=== PATIENT | female | born 1970 | race African-American/Black ===

== ENCOUNTER 2017-07-02 10:52 | Emergency (ER) | payer OTHER ==
[~2017-07-02] VITALS: Ht 162.6 cm; Wt 50.8 kg
[~2017-07-02 10:52] MED LIST: AMOXICILLIN500 MG ORAL; CEPHALEXIN500 MG ORAL; CYCLOBENZAPRINE10 MG ORAL; HYDROCORTISON28.4 G5 TOPIC; HYDROXYZINE HCL50 M1 PO; IBUPROFEN600 MG ORAL; NITROFURANTOIN100 M2 ORAL; NKM; PROMETHAZINE-D118 ML ORAL; ZOFRAN4 M3 ORAL
[2017-07-02 11:30] VITALS: BP 103/69
[2017-07-02] MEDS ORDERED: Dicyclomine HCl 10mg/5ml oral soln ORAL ONE (12:00)
[2017-07-02] MEDS ORDERED: Metoclopramide 10mg/2ml Inj IVP ONE (12:00)
[2017-07-02] MEDS ORDERED: Mylanta II UD 30ml ORAL ONE (12:00)
[2017-07-02 12:08] LABS: APPEARANCE,URINE CLOUDY; KETONES,URINE NEGATIVE (NEGATIVE); LEUKOCYTE ESTERASE ,URINE 3+ (NEGATIVE); NITRITE,URINE NEGATIVE (NEGATIVE); PH,URINE 5 (4.5-8.0); PROTEIN,URINE 2+ (NEGATIVE); UROBILINOGEN,URINE NORMAL MG/DL (0.0-1.0)
[2017-07-02 12:11] LABS: BASOPHILS % (AUTO) 1.3 % (0.0-2.0); EOSINOPHILS % (AUTO) 0.8 % (0.0-3.0); MEAN CORPUSCULAR HEMOGLOBIN 31.8 PG (27.0-31.0); MEAN CORPUSCULAR HGB CONC 31.7 G/DL (32.0-36.0); MEAN CORPUSCULAR VOLUME 100 FL (80-99); MONOCYTES % (AUTO) 8.1 % (1.0-10.0); NEUTROPHILS % (AUTO) 74.8 % (45.0-75.0); PLATELET COUNT 287 K/UL (150-450); RED BLOOD COUNT 4.18 M/UL (4.20-5.40); RED CELL DISTRIBUTION WIDTH 11.8 % (11.6-14.8); WHITE BLOOD COUNT 13.1 K/UL (4.8-10.8)
[2017-07-02 12:15] LABS: BACTERIA,URINE FEW /HPF; SQUAMOUS EPITHELIAL CELL,UR FEW /LPF (NONE/OCC); WBC,URINE 60-80 /HPF (0 - 2)
[2017-07-02] MEDS ORDERED: cefTRIAXone 1 GM in NS 55 ML IVPB ONE (12:30)
[2017-07-02 12:37] LABS: ALANINE AMINOTRANSFERASE 7 U/L (3-33); ALBUMIN/GLOBULIN RATIO 1.2 (1.0-2.7); ANION GAP 11 (5-15); ASPARTATE AMINO TRANSFERASE 25 U/L (5-40); CALCIUM 9.1 mg/dL (8.6-10.2); CARBON DIOXIDE 28 mEQ/L (20-30); CHLORIDE 100 mEQ/L (98-107); CREATININE 0.8 mg/dL (0.5-0.9); GLOMERULAR FILTRATION RATE > 60 mL/min (>60); HEMOLYSIS 4; LIPASE 13 U/L (< 60); POTASSIUM 4.2 mEQ/L (3.4-4.9); SODIUM 139 mEQ/L (135-145); TOTAL PROTEIN 7.3 g/dL (6.6-8.7)
[2017-07-02] MEDS ORDERED: ZOFRAN4 MG ORAL (12:54)
[2017-07-02] MEDS ORDERED: KEFLEX500 MG ORAL (12:54)
[2017-07-02] MEDS ORDERED: IBUPROFEN600 MG ORAL (12:54)
--- NOTE | 2017-07-02 12:59 | Emergency Room Report ---
History of Present Illness General Chief Complaint: Abdominal Pain Source: Patient Present Illness HPI Is a 47-year-old female who presented after increased lower bowel pain as well as vomiting. Patient had the symptoms over the past 2 days. She stated that pain was associated with some nausea. Patient any diarrhea. She denied fever. The patient having moderate pain. Patient prior history of urinary infections. Allergies: Coded Allergies: No Known Allergies (Unverified , 01/23/14) Patient History Last Menstrual Period: 06/10/17 Now: No : 2 Para: 2 Reviewed Nursing Documentation: PMH: Agreed, PSxH: Agreed Nursing Documentation-PMH Past Medical History: No Stated History Hx Asthma: Yes Review of Systems All Other Systems: negative except mentioned in HPI Physical Exam Vital Signs Date Time Temp Pulse Resp B/P Pulse Ox O2 Delivery O2 Flow Rate FiO2 07/02/17 11:05 97.9 84 16 103/69 100 Room Air Sp02 EP Interpretation: reviewed, normal General Appearance: normal inspection, well appearing, no apparent distress, alert, GCS 15 Head: atraumatic ENT: normal ENT inspection, hearing grossly normal, normal voice Neck: normal inspection, full range of motion, supple, no bony tend Respiratory: normal inspection, lungs clear, normal breath sounds, no respiratory distress, no retraction, no wheezing Cardiovascular #1: regular rate, rhythm, no edema Gastrointestinal: normal inspection, normal bowel sounds, non tender, soft, no guarding, no hernia Genitourinary: no CVA tenderness Musculoskeletal: normal inspection, back normal, normal range of motion Neurologic: normal inspection, alert, oriented x3, responsive, texturing machine fixer III-XII nml as tested, motor strength/tone normal, speech normal Psychiatric: normal inspection, judgement/insight normal, mood/affect normal Skin: normal inspection, normal color, no rash Medical Decision Making Diagnostic Impression: Primary Impression: Urinary tract infection ER Course Patient presented for abdominal pain. Differential diagnoses included ischemic bowel, appendicitis, perforated viscus, abdominal aortic aneurysm, inferior myocardial infarction, viral gastroenteritis Because of complexity of patient's case laboratory testing and imaging studies were ordered. Patient appears to have evidence of urinary tract infection. Laboratory testing was notable for mildly white blood count. The patient was given IV antibiotics. The patient was noted to have a mildly enlarged uterus consistent with uterine fibroidsThe patient is advised to follow up with primary care doctor in 1-2 days. Patient is advised to return if any worsening condition or if any changes in status that are concerning. Labs Test 07/02/17 11:50 White Blood Count 13.1 K/UL (4.8-10.8) Red Blood Count 4.18 M/UL (4.20-5.40) Hemoglobin 13.3 G/DL (12.0-16.0) Hematocrit 41.9 % (37.0-47.0) Mean Corpuscular Volume 100 FL (80-99) Mean Corpuscular Hemoglobin 31.8 PG (27.0-31.0) Mean Corpuscular Hemoglobin Concent 31.7 G/DL (32.0-36.0) Red Cell Distribution Width 11.8 % (11.6-14.8) Platelet Count 287 K/UL (150-450) Mean Platelet Volume 7.0 FL (6.5-10.1) Neutrophils (%) (Auto) 74.8 % (45.0-75.0) Lymphocytes (%) (Auto) 15.0 % (20.0-45.0) Monocytes (%) (Auto) 8.1 % (1.0-10.0) Eosinophils (%) (Auto) 0.8 % (0.0-3.0) Basophils (%) (Auto) 1.3 % (0.0-2.0) Urine Color Yellow Urine Appearance Cloudy Urine pH 5 (4.5-8.0) Urine Specific [place] 1.015 (1.005-1.035) Urine Protein 2+ (NEGATIVE) Urine Glucose (UA) Negative (NEGATIVE) Urine Ketones Negative (NEGATIVE) Urine Occult Blood 2+ (NEGATIVE) Urine Nitrite Negative (NEGATIVE) Urine Bilirubin Negative (NEGATIVE) Urine Urobilinogen Normal MG/DL (0.0-1.0) Urine Leukocyte Esterase 3+ (NEGATIVE) Urine RBC 2-4 /HPF (0 - 2) Urine WBC 60-80 /HPF (0 - 2) Urine Squamous Epithelial Cells Few /LPF (NONE/OCC) Urine Bacteria Few /HPF (NONE) Urine HCG, Qualitative Negative Sodium Level 139 mEQ/L (135-145) Potassium Level 4.2 mEQ/L (3.4-4.9) Chloride Level 100 mEQ/L (98-107) Carbon Dioxide Level 28 mEQ/L (20-30) Anion Gap 11 (5-15) Blood Urea Nitrogen 7 mg/dL (7-23) Creatinine 0.8 mg/dL (0.5-0.9) Estimat Glomerular Filtration Rate > 60 mL/min (>60) Glucose Level 89 mg/dL (74-106) Calcium Level 9.1 mg/dL (8.6-10.2) Total Bilirubin 0.6 mg/dL (0.0-1.2) Aspartate Amino Transf (AST/SGOT) 25 U/L (5-40) Alanine Aminotransferase (ALT/SGPT) 7 U/L (3-33) Alkaline Phosphatase 70 U/L (35-104) Total Protein 7.3 g/dL (6.6-8.7) Albumin 4.0 g/dL (3.5-5.2) Globulin 3.3 g/dL Albumin/Globulin Ratio 1.2 (1.0-2.7) Lipase 13 U/L (< 60) Last Vital Signs Date Time Temp Pulse Resp B/P Pulse Ox O2 Delivery O2 Flow Rate FiO2 07/02/17 11:30 97.9 84 16 103/69 100 Room Air Status: improved Disposition: HOME, SELF-CARE Condition: Stable Scripts Ibuprofen* (MOTRIN*) 600 Mg Tablet 600 MG ORAL Q8H Y for For Pain, #30 TAB 0 Refills Prov: Parag Dwyer 07/02/17 Ondansetron (Zofran) 4 Mg Tablet 4 MG ORAL Q6H Y for Nausea & Vomiting, #30 TAB 0 Refills Prov: Parag Dwyer 07/02/17 Cephalexin* (KEFLEX*) 500 Mg Capsule 500 MG ORAL EVERY 6 HOURS, #28 CAP 0 Refills Prov: Parag Dwyer 07/02/17 Referrals: [facility],REFERRING (PCP) Patient Instructions: Abdominal Pain, Adult Parag Dwyer Jul 02, 2017 12:59
[2017-07-02 13:18] VITALS: BP 114/74
[2017-07-02 13:22] VITALS: BP 114/74
== END 2017-07-02 13:22 | disposition home or self-care (01) ==
LOC: EMR 11:33
DX: N39.0 Urinary tract infection, site not specified (principal); J45.909 Unspecified asthma, uncomplicated
CPT/HCPCS: 36415; 80053; 81003; 81025; 83690; 85025; 87086; 87181; 96360; 96361; 96374; 96375; 99284; J0696; J2765; J7040

== ENCOUNTER 2017-09-18 14:57 | Emergency (ER) | payer MEDICAID, OTHER ==
[~2017-09-18] VITALS: Ht 162.6 cm; Wt 56.7 kg
[~2017-09-18 14:57] MED LIST changes: +KEFLEX500 MG ORAL; +ZOFRAN4 MG ORAL
[2017-09-18 15:15] VITALS: BP 113/79
[2017-09-18] MEDS ORDERED: TRAMADOL HCL50 MG ORAL (16:21)
[2017-09-18] MEDS ORDERED: SILVADENE20 GM TP (16:21)
[2017-09-18 16:25] VITALS: BP 113/79
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
== END 2017-09-18 17:12 | disposition home or self-care (01) ==
LOC: EMR 15:44
DX: T23.221A Burn of second degree of single right finger (nail) except thumb, initial encounter (principal); T23.171A Burn of first degree of right wrist, initial encounter; X12.XXXA Contact with other hot fluids, initial encounter; Y92.010 Kitchen of single-family (private) house as the place of occurrence of the external cause
CPT/HCPCS: 99283

== ENCOUNTER 2018-07-27 08:18 | Emergency (ER) | payer MEDICAID ==
[~2018-07-27] VITALS: Ht 162.6 cm; Wt 52.2 kg
[~2018-07-27 08:18] MED LIST changes: +SILVADENE20 GM TP; +TRAMADOL HCL50 MG ORAL
[2018-07-27 08:44] VITALS: BP 121/68
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
[2018-07-27] MEDS ORDERED: AMOXICILLIN500 MG ORAL (09:50)
[2018-07-27] MEDS ORDERED: ARNICA120 ML TP (09:59)
[2018-07-27 10:16] VITALS: BP 114/78
== END 2018-07-27 10:18 | disposition home or self-care (01) ==
LOC: EMR 08:52
DX: S00.83XA Contusion of other part of head, initial encounter (principal); Y04.0XXA Assault by unarmed brawl or fight, initial encounter; Y93.9 Activity, unspecified; Y92.9 Unspecified place or not applicable; J45.909 Unspecified asthma, uncomplicated
CPT/HCPCS: 70486; 99284

== ENCOUNTER → 2018-11-02 | Emergency (ER) | payer MEDICAID ==
[~2018-11-02] VITALS: Ht 162.6 cm; Wt 52.2 kg
[~2018-11-02] MED LIST changes: +ARNICA120 ML TP
[2018-11-02 02:12] VITALS: BP 131/74
--- NOTE | 2018-11-02 02:31 | Emergency Room Report ---
History of Present Illness General Chief Complaint: Upper Extremity Injury Present Illness Allergies: Coded Allergies: No Known Allergies (Unverified , 01/23/14) Patient History Last Menstrual Period: still on Now: No Nursing Documentation-[facility] [place] Hx Asthma: Yes Physical Exam Vital Signs Date Time Temp Pulse Resp B/P (MAP) Pulse Ox O2 Delivery O2 Flow Rate FiO2 11/02/18 02:12 98.1 124 16 131/74 97 Room Air Medical Decision Making ER Course patient left prior to being seen Last Vital Signs Date Time Temp Pulse Resp B/P (MAP) Pulse Ox O2 Delivery O2 Flow Rate FiO2 11/02/18 02:12 98.1 124 16 131/74 97 Room Air Status: other Disposition: LEFT W/OUT BEING SEEN Condition: Unknown Belén Gonsales DO Nov 02, 2018 02:31
== END | disposition left against medical advice (07) ==
LOC: EMR 02:18
DX: S49.90XA Unspecified injury of shoulder and upper arm, unspecified arm, initial encounter (principal); Z53.21 Procedure and treatment not carried out due to patient leaving prior to being seen by health care provider